=== PATIENT | male | born 1960 | race Caucasian/White ===

== ENCOUNTER → 2017-09-30 | Outpatient (CLI) | payer OTHER ==
--- NOTE | 2017-09-30 12:59 | US ---
EXAMINATION TYPE: US carotid duplex BILAT DATE OF EXAM: 09/30/2017 COMPARISON: NONE CLINICAL HISTORY: H53.9 Visual disturbance. EXAM MEASUREMENTS: RIGHT: Peak Systolic Velocity (PSV) cm/sec ----- Right CCA: 143.3 ----- Right ICA: 88.6 ----- Right ECA: 83.1 ICA/CCA ratio: 0.6 RIGHT: End Diastole cm/sec ----- Right CCA: 29.9 ----- Right ICA: 20.4 ----- Right ECA: 17.1 LEFT: Peak Systolic Velocity (PSV) cm/sec ----- Left CCA: 95.3 ----- Left ICA: 115.7 ----- Left ECA: 79.9 ICA/CCA ratio: 1.2 LEFT: End Diastole cm/sec ----- Left CCA: 29.2 ----- Left ICA: 38.1 ----- Left ECA: 0.0 VERTEBRALS (direction of flow): Right Vertebral: Antegrade Left Vertebral: Antegrade Rhythm: Normal No significant stenosis seen, mild bilateral plaque noted IMPRESSION: Mild bilateral grayscale atheromatous plaquing with no sonographic evidence for hemodyna mically significant stenosis within either carotid arterial system. Systolic velocity within the left internal carotid artery approaches criteria for 50% stenosis.
== END | disposition home or self-care (01) ==
LOC: RADUSWWP 12:00
PROVIDERS: ATTEND Family Medicine
DX: I77.89 Other specified disorders of arteries and arterioles (principal); H53.9 Unspecified visual disturbance
CPT/HCPCS: 93880

== ENCOUNTER → 2021-02-22 | Outpatient (CLI) | payer OTHER ==
--- NOTE | 2021-02-24 17:05 | US ---
EXAMINATION TYPE: US carotid duplex BILAT DATE OF EXAM: 02/22/2021 COMPARISON: 09/30/2017 CLINICAL HISTORY: 61-year-old male R55 syncope. EXAM MEASUREMENTS: RIGHT: Peak Systolic Velocity (PSV) cm/sec ----- Right CCA: 110.6 ----- Right ICA: 95.5 ----- Right ECA: 122.2 ICA/CCA ratio: 0.9 RIGHT: End Diastole cm/sec ----- Right CCA: 38.7 ----- Right ICA: 31.1 ----- Right ECA: 28.5 LEFT: Peak Systolic Velocity (PSV) cm/sec ----- Left CCA: 117.4 ----- Left ICA: 83.3 ----- Left ECA: 78.9 ICA/CCA ratio: 0.7 LEFT: End Diastole cm/sec ----- Left CCA: 37.1 ----- Left ICA: 34.8 ----- Left ECA: 19.4 VERTEBRALS (direction of flow): Right Vertebral: Antegrade Left Vertebral: Antegrade Rhythm: Normal [employer] Developer notes: No significant stenosis seen. IMPRESSION: No hemodynamically significant ICA stenosis on either side. Criteria for Assigning % of Stenosis / Diameter reduction (Estimation based on the indirect measurements of the internal carotid artery velocities (ICA PSV). 1. Normal (no stenosis)=ICA PSV < 125 cm/s: ratio < 2.0: ICA EDV<40 cm/s. 2. Less than 50% stenosis=ICA PSV < 125 cm/s: ratio < 2.0: ICA EDV<40 cm/s. 3. 50 to 69% stenosis=ICA PSV of 125 to 230 cm/s: ration 2.0 ? 4.0: ICA EDV 40-100 cm/s. 4. Greater than 70% stenosis to near occlusion= ICA PSV > 230 cm/s: ratio > 4.0: ICA EDV > 100 cm/s. 5. Near occlusion= ICA PSV velocities may be low or undetectable: variable ratio and ICA EDV. 6. Total occlusion=unable to detect flow.
== END | disposition home or self-care (01) ==
LOC: RADUSWWP 10:49
PROVIDERS: ATTEND Family Medicine
DX: R55 Syncope and collapse (principal)
CPT/HCPCS: 93880

== ENCOUNTER → 2024-12-12 | Outpatient (CLI) | payer MEDICARE, BC ==
--- NOTE | 2024-12-12 08:37 | US ---
EXAMINATION TYPE: US Aorta Screening DATE OF EXAM: 12/12/2024 COMPARISON: CT Chest 2017 CLINICAL INDICATION: Male, 64 years old with history of Z87.891 PERSONAL HX OF NICOTINE; Prior smoker . Hx hyperlipidemia. TECHNIQUE: Multiple sonographic images of the abdominal aorta are obtained with grayscale and color D oppler imaging. FINDINGS: EXAM MEASUREMENTS: Abdominal Aorta: Proximal: 2.5 x 2.1 cm Mid: 2.4 x 1.9 cm Distal: 1.7 x 1.9 cm Bifurcation: Right Iliac: 1.0 x 1.2 cm Left Iliac: 0.9 x 1.1 cm SATELLITE INSTALLATION TECHNICIAN NOTES: Exam is limited due to gas. No aneurysm seen. IMPRESSION: No abdominal aortic aneurysm. [facility], , 12/12/2024 8:35 AM
== END | disposition home or self-care (01) ==
LOC: RADUSWWP 07:49
PROVIDERS: ATTEND Family Medicine
DX: Z13.6 Encounter for screening for cardiovascular disorders (principal); Z87.891 Personal history of nicotine dependence; E78.5 Hyperlipidemia, unspecified
CPT/HCPCS: 76706